=== PATIENT | female | born 1990 | race Caucasian/White ===

== ENCOUNTER 2024-10-18 16:05 | Emergency (ER) | payer OTHER ==
[2024-10-18 16:27] VITALS: RESP 20
--- NOTE | 2024-10-18 16:42 | ED ---
Allergic Reaction HPI - General Chief complaint: Allergic Reaction Stated complaint: Bug Sting Time Seen by Provider: 10/18/24 16:09 Source: patient, RN notes reviewed Mode of arrival: ambulatory Limitations: no limitations - History of Present Illness Initial Comments: 34-year-old female presents emergency department chief complaint of bee sting. Patient states this happened approximate 2 hours ago in her left foot. Patient states she has had bad reactions in the past in which she had her son give her her an EpiPen. Patient did not taking Benadryl no steroids. Patient denies any difficulty breathing or difficulty swallowing. Patient states that she has burning at the site. - Related Data Allergies Allergy/AdvReac Type Severity Reaction Status Date / Time bee venom protein (honey bee) Allergy Severe Anaphylaxis Verified 10/18/24 16:36 adhesive tape Allergy Rash/Hives Verified 10/18/24 16:20 bee Allergy Severe Anaphylaxis Uncoded 10/18/24 16:36 Review of Systems ROS Statement: Those systems with pertinent positive or pertinent negative responses have been documented in the HPI. ROS Other: All systems not noted in ROS Statement are negative. Past Medical History Past Medical History: Fibromyalgia Past Surgical History: Orthopedic Surgery Additional Past Surgical History / Comment(s): ovarian surgey Past Psychological History: Anxiety General Exam Limitations: no limitations General appearance: alert, in no apparent distress Head exam: Present: atraumatic, normocephalic, normal inspection Eye exam: Present: normal appearance, PERRL, EOMI. Absent: scleral icterus, conjunctival injection, periorbital swelling ENT exam: Present: normal exam, mucous membranes moist Neck exam: Present: normal inspection, full ROM. Absent: tenderness, meningismus, lymphadenopathy Respiratory exam: Present: normal lung sounds bilaterally. Absent: respiratory distress, wheezes, rales, rhonchi, stridor Cardiovascular Exam: Present: regular rate, normal rhythm, normal heart sounds. Absent: systolic murmur, diastolic murmur, rubs, gallop, clicks Extremities exam: Present: other (Small area of erythema of the foot left) Course Vital Signs 10/18/24 10/18/24 10/18/24 16:17 16:24 16:26 Temperature 97.8 F Pulse Rate 84 79 Respiratory 16 20 20 Rate Blood Pressure 103/71 116/71 O2 Sat by Pulse 98 95 Oximetry 10/18/24 10/18/24 16:46 17:30 Temperature 98.0 F 98.0 F Pulse Rate 75 63 Respiratory 20 20 Rate Blood Pressure 108/63 106/69 O2 Sat by Pulse 95 100 Oximetry Medical Decision Making - Medical Decision Making Was pt. sent in by a medical professional or institution (CHAPIN Wong, INTERMEDIATE DESIGNER, urgent care, hospital, or penitentiary...) When possible be specific @ -No Did you speak to anyone other than the patient for history (EMS, parent, family, police, friend...)? What history was obtained from this source @ -No Did you review nursing and triage notes (agree or disagree)? Why? @ -I reviewed and agree with nursing and triage notes Were old charts reviewed (outside hosp., previous admission, EMS record, old EKG, old radiological studies, urgent care reports/EKG's, penitentiary records)? Report findings @ -No old charts were reviewed Differential Diagnosis (chest pain, altered mental status, abdominal pain women, abdominal pain men, vaginal bleeding, weakness, fever, dyspnea, syncope, headache, dizziness, GI bleed, back pain, seizure, CVA, palpatations, mental health, musculoskeletal)? @ -Allergic reaction, anaphylaxis, localizes reaction, bee sting EKG interpreted by me (3pts min.). @ -None X-rays interpreted by me (1pt min.). @ -None done CT interpreted by me (1pt min.). @ -None done U/S interpreted by me (1pt. min.). @ -None done What testing was considered but not performed or refused? (CT, X-rays, U/S, labs)? Why? @ -None What meds were considered but not given or refused? Why? @ -None Did you discuss the management of the patient with other professionals (professionals i.e. CHAPIN Wong, INTERMEDIATE DESIGNER, lab, RT, psych nurse, social research assistant, metal stamper, teacher, hospital security officer, rifle case repairer)? Give summary @ -No Was smoking cessation discussed for >3mins.? @ -No Was critical care preformed (if so, how long)? @ -No Were there social determinants of health that impacted care today? How? (Homelessness, low income, unemployed, alcoholism, drug addiction, transportation, low edu. Level, literacy, decrease access to med. care, detention, rehab)? @ -No Was there de-escalation of care discussed even if they declined (Discuss DNR or withdrawal of care, Hospice)? DNR status @ -No What co-morbidities impacted this encounter? (DM, HTN, Smoking, COPD, CAD, Cancer, CVA, ARF, Chemo, Hep., AIDS, mental health diagnosis, sleep apnea, morbid obesity)? @ -None Was patient admitted / discharged? Hospital course, mention meds given and route, prescriptions, significant lab abnormalities, going to OR and other pertinent info. @ -Charge patient presented after bee sting patient occurrence happened 2 hours prior arrival epi was already given patient given Solu-Medrol and Benadryl patient was observed for 2 hours no recurrence of symptoms. Undiagnosed new problem with uncertain prognosis? @ -No Drug Therapy requiring intensive monitoring for toxicity (Heparin, Nitro, Insulin, Cardizem)? @ -No Were any procedures done? @ -No Diagnosis/symptom? @ -Bee sting localized reaction Acute, or Chronic, or Acute on Chronic? @ -Acute Uncomplicated (without systemic symptoms) or Complicated (systemic symptoms)? @ -Complicated Side effects of treatment? @ -No Exacerbation, Progression, or Severe Exacerbation? @ -No Poses a threat to life or bodily function? How? (Chest pain, [place], [place], pneumonia, PE, COPD, DKA, ARF, appy, cholecystitis, CVA, Diverticulitis, Homicidal, Suicidal, threat to staff... and all critical care pts) @ -No Disposition Clinical Impression: Allergic reaction, Allergic reaction to insect sting Disposition: HOME SELF-CARE Condition: Stable Instructions (If sedation given, give patient instructions): Anaphylaxis (ED) Additional Instructions: Please return to the Emergency Department if symptoms worsen or any other concerns. Is patient prescribed a controlled substance at d/c from ED?: No Referrals: Nonstaff,Physician [Primary Care Provider] - 1-2 days Time of Disposition: 17:43
[2024-10-18] MEDS: methylPREDNISolone SOD SUCCI 125 MG/2 ML VIAL IM ONE (16:44)
[2024-10-18] MEDS: diphenhydrAMINE 50 MG/ML 1 ML VIAL IM STA (16:44)
[2024-10-18 16:47] VITALS: TEMP 98
[2024-10-18 17:50] VITALS: BP 105/70; PULSE 66
== END 2024-10-18 17:49 | disposition home or self-care (01) ==
LOC: EC 16:05
DX: T63.441A Toxic effect of venom of bees, accidental (unintentional), initial encounter (principal); Z91.048 Other nonmedicinal substance allergy status; Z91.030 Bee allergy status
CPT/HCPCS: 99283; 96372; J1200; J2919